=== PATIENT | female | born 1990 | race American Indian/Alaskan Native ===

== ENCOUNTER 2019-04-05 03:26 | Emergency (ER) | payer OTHER ==
[2019-04-05 03:33] VITALS: BP 142/95
[2019-04-05] MEDS ORDERED: PERCOCET 5/325 ONE (04:06)
[2019-04-05] MEDS ORDERED: PERCOCET 5/325 PO ONE (04:06)
[2019-04-05] MEDS ORDERED: ZOFRAN ODT PO ONE (04:06)
[2019-04-05] MEDS ORDERED: ZOFRAN ODT ONE (04:06)
--- NOTE | 2019-04-05 04:14 | Emergency Department Report ---
ED General Adult HPI - General Chief complaint: Dental/Oral Stated complaint: TOOTH ACHE Time Seen by Provider: 04/05/19 04:00 Source: patient Mode of arrival: Ambulatory Limitations: No Limitations - History of Present Illness Initial comments: Patient is a 29-year-old Morbidly Obese -[place] female with no past medical history who presents with a 82 with complaint of acute onset persistent severe right maxillary gums and swelling and pain while on monitor with aches for the last 2 days. Patient states that she has not been eating any food causes severe pain. Patient admits to taking on amoxicillin that were previously prescribed for upper respiratory infection that she did not complete. Patient states that she has been taking ibuprofen with no relief. Patient denies dizziness, fever, chills, nausea, vomiting, abdominal pain, sore throat, change in vision, neck pain or back pain. MD Complaint: swollen gums; toothache -: Sudden, days(s) (2) Location: mouth Radiation: non-radiation Severity scale (0 -10): 5 Quality: aching, sharp, constant Consistency: constant Improves with: none Worsens with: none Associated Symptoms: denies other symptoms. denies: confusion, chest pain, cough, diaphoresis, fever/chills, headaches, loss of appetite, malaise, nausea/vomiting, seizure, shortness of breath, syncope, weakness Treatments Prior to Arrival: NSAID - Related Data Previous Rx's Medication Instructions Recorded Last Taken Type Acetaminophen/Codeine [Tylenol 1 tab PO Q6H PRN #15 tab 04/05/19 Unknown Rx /Codeine # 3 tab] Clindamycin [Clindamycin CAP] 300 mg PO Q6HR #80 capsule 04/05/19 Unknown Rx Ketorolac [Toradol] 10 mg PO Q8H PRN #20 tablet 04/05/19 Unknown Rx Allergies Allergy/AdvReac Type Severity Reaction Status Date / Time No Known Allergies Allergy Unverified 04/05/19 03:31 ED Review of Systems ROS: Stated complaint: TOOTH ACHE Other details as noted in HPI Constitutional: denies: chills, fever Eyes: denies: eye pain, eye discharge, vision change ENT: dental pain (painful swollen gums and severely tender right maxillary pr emolar toothache), other (diffuse dental caries and cavities). denies: ear pain, throat pain Respiratory: no symptoms reported. denies: cough, shortness of breath, wheezing Cardiovascular: denies: chest pain, palpitations Endocrine: no symptoms reported Gastrointestinal: denies: abdominal pain, nausea, diarrhea Genitourinary: denies: urgency, dysuria, discharge Musculoskeletal: denies: back pain, joint swelling, arthralgia Skin: denies: rash, lesions Neurological: denies: headache, weakness, paresthesias Psychiatric: denies: anxiety, depression Hematological/Lymphatic: denies: easy bleeding, easy bruising ED Past Medical Hx - Past Medical History Previous Medical History?: Yes Hx Asthma: Yes - Surgical History Additional Surgical History: C/SX3 - Social History Smoking Status: Never Smoker Substance Use Type: None - Medications Home Medications: Home Medications Medication Instructions Recorded Confirmed Last Taken Type Acetaminophen/Codeine [Tylenol 1 tab PO Q6H PRN #15 tab 04/05/19 Unknown Rx /Codeine # 3 tab] Clindamycin [Clindamycin CAP] 300 mg PO Q6HR #80 capsule 04/05/19 Unknown Rx Ketorolac [Toradol] 10 mg PO Q8H PRN #20 tablet 04/05/19 Unknown Rx ED Physical Exam - General Limitations: No Limitations General appearance: alert, in no apparent distress - Head Head exam: Present: atraumatic, normocephalic, normal inspection - Eye Eye exam: Present: normal appearance, PERRL, EOMI. Absent: periorbital swelling, periorbital tenderness - ENT ENT exam: Present: normal exam, mucous membranes moist, TM's normal bilaterally, normal external ear exam, other (Swollen right maxillary gums with tenderness; diffuse caries and cavities; tender maxillary premolar teeth) - Neck Neck exam: Present: normal inspection, full ROM - Respiratory Respiratory exam: Present: normal lung sounds bilaterally. Absent: respiratory distress, wheezes, rhonchi, chest wall tenderness, accessory muscle use, decreased breath sounds, prolonged expiratory - Cardiovascular Cardiovascular Exam: Present: regular rate, normal rhythm, normal heart sounds. Absent: systolic murmur, diastolic murmur, rubs, gallop - GI/Abdominal GI/Abdominal exam: Present: soft, normal bowel sounds. Absent: tenderness, guarding, hyperactive bowel sounds, hypoactive bowel sounds, organomegaly - Rectal Rectal exam: Present: deferred - Extremities Exam Extremities exam: Present: normal inspection, full ROM, normal capillary refill. Absent: pedal edema - Back Exam Back exam: Present: normal inspection, full ROM. Absent: tenderness, muscle spasm, vertebral tenderness - Neurological Exam Neurological exam: Present: alert, oriented X3, CN II-XII intact, normal gait, reflexes normal - Psychiatric Psychiatric exam: Present: normal affect, normal mood - Skin Skin exam: Present: warm, dry, intact, normal color. Absent: rash ED Course Vital Signs 04/05/19 03:32 Temperature 98.6 F Pulse Rate 83 Respiratory 20 Rate Blood Pressure 142/95 O2 Sat by Pulse 100 Oximetry - Reevaluation(s) Reevaluation #1: 04/05/19 04:15 Patient is alert and oriented 3 and is not in any distress with normal vital signs. Patient was treated for pain in the ED and discharged home on antibiotics and pain medications, advised follow-up with the dentist in 5-7 days for reevaluation or return to the ED immediately if symptoms get worse. ED Medical Decision Making - Medical Decision Making Patient is alert and oriented 3 and is not in any distress with normal vital signs. Patient was treated for pain in the ED and discharged home on antibioti cs and pain medications, advised follow-up with the dentist in 5-7 days for reevaluation or return to the ED immediately if symptoms get worse. - Differential Diagnosis dental abscess; dental caries, acute gingivitis Critical care attestation.: If time is entered above; I have spent that time in minutes in the direct care of this critically ill patient, excluding procedure time. ED Disposition Clinical Impression: Acute gingivitis, Dental caries, Dental abscess Disposition: TO HOME OR SELFCARE Is pt being admited?: No Does the pt Need Aspirin: No Condition: Stable Instructions: Dental Abscess (ED), Gingivitis (ED), Dental Caries (ED) Additional Instructions: Take medications with food, drink plenty of fluids and follow-up with the denti st in 5-7 days or follow up with your primary care physician in 5-7 days for reevaluation. Return to the ED immediately if symptoms get worse. Prescriptions: Clindamycin [Clindamycin CAP] 300 mg PO Q6HR #80 capsule Ketorolac [Toradol] 10 mg PO Q8H PRN #20 tablet PRN Reason: Pain Acetaminophen/Codeine [Tylenol /Codeine # 3 tab] 1 tab PO Q6H PRN #15 tab PRN Reason: Pain , Severe (7-10) Referrals: KELY FOSS MD [Primary Care Provider] - 3-5 Days Time of Disposition: 04:45 Print Language: YI
== END 2019-04-05 04:54 | disposition home or self-care (01) ==
LOC: ED 03:26
DX: K05.00 Acute gingivitis, plaque induced (principal); K02.9 Dental caries, unspecified; K04.7 Periapical abscess without sinus; J45.909 Unspecified asthma, uncomplicated
CPT/HCPCS: Q0162

== ENCOUNTER 2019-04-05 21:09 | Emergency (ER) | payer OTHER ==
[2019-04-05] MEDS ORDERED: NORCO 5/325 PO ONE (21:12)
[2019-04-05] MEDS ORDERED: TORADOL IM ONE (21:12)
[2019-04-05] MEDS ORDERED: BICILLIN L-A IM ONE (21:12)
--- NOTE | 2019-04-05 21:14 | Emergency Department Report ---
ED Recheck HPI - General Stated Complaint: TOOTHACHE Time Seen by Provider: 04/05/19 21:12 Source: patient - History of Present Illness Initial Comments: HERE FOR DENTAL PAIN. HERE LAST PM AND COULD NOT GET MEDS DUE TO COST. - Related Data Previous Rx's Medication Instructions Recorded Last Taken Type Acetaminophen/Codeine [Tylenol 1 tab PO Q6H PRN #15 tab 04/05/19 Unknown Rx /Codeine # 3 tab] Clindamycin [Clindamycin CAP] 300 mg PO Q8H #30 cap 04/05/19 Unknown Rx Ketorolac [Toradol] 10 mg PO Q8H PRN #20 tablet 04/05/19 Unknown Rx Allergies Allergy/AdvReac Type Severity Reaction Status Date / Time No Known Allergies Allergy Unverified 04/05/19 03:31 ED Review of Systems ROS: Stated complaint: TOOTHACHE Other details as noted in HPI Comment: All other systems reviewed and negative ED Past Medical Hx - Past Medical History Hx Asthma: Yes - Surgical History Additional Surgical History: C/SX3 - Family History Family history: no significant - Social History Smoking Status: Never Smoker Substance Use Type: None - Medications Home Medications: Home Medications Medication Instructions Recorded Confirmed Last Taken Type Acetaminophen/Codeine [Tylenol 1 tab PO Q6H PRN #15 tab 04/05/19 Unknown Rx /Codeine # 3 tab] Clindamycin [Clindamycin CAP] 300 mg PO Q8H #30 cap 04/05/19 Unknown Rx Ketorolac [Toradol] 10 mg PO Q8H PRN #20 tablet 04/05/19 Unknown Rx ED Physical Exam - General General appearance: alert, in no apparent distress - Head Head exam: Present: normocephalic - Eye Eye exam: Present: normal appearance - ENT ENT exam: Present: mucous membranes moist - Neck Neck exam: Present: normal inspection - Respiratory Respiratory exam: Present: normal lung sounds bilaterally - Cardiovascular Cardiovascular Exam: Present: regular rate - GI/Abdominal GI/Abdominal exam: Present: soft - Rectal Rectal exam: Present: deferred - Extremities Exam Extremities exam: Present: normal inspection - Back Exam Back exam: Present: normal inspection, full ROM - Neurological Exam Neurological exam: Present: alert, oriented X3 - Psychiatric Psychiatric exam: Present: normal affect, normal mood - Skin Skin exam: Present: warm, dry, intact ED Course Vital Signs 04/05/19 21:13 Temperature 98.9 F Pulse Rate 70 Respiratory 16 Rate Blood Pressure 165/102 O2 Sat by Pulse 100 Oximetry ED Recheck MDM - Core Measures Measure Exclusions: not indicated - Differential Diagnosis Wound Recheck - Medical Decision Making MEDICATED WITH BICILLIN, TORADOL AND NORCO DC HOME WITH DC PLAN OF CARE Critical care attestation.: If time is entered above; I have spent that time in minutes in the direct care of this critically ill patient, excluding procedure time. ED Disposition Clinical Impression: Dental caries, Dental abscess, Acute gingivitis Disposition: DC-01 TO HOME OR SELFCARE Is pt being admited?: No Does the pt Need Aspirin: No Condition: Stable Instructions: Toothache (ED) Additional Instructions: see dmd judith over the counter motrin or tylenol will help with pain TELL DENTIST YOU GOT BICILLIN LA 1.2MU IM TODAY Prescriptions: Clindamycin [Clindamycin CAP] 300 mg PO Q8H #30 cap Referrals: [facility] [Outside] - 3-[address] [facility] [Outside] - 3-5 Days Time of Disposition: 21:15
[2019-04-05 21:16] VITALS: BP 165/102
== END 2019-04-05 21:41 | disposition home or self-care (01) ==
LOC: ED 21:09
DX: K05.00 Acute gingivitis, plaque induced (principal); K02.9 Dental caries, unspecified; K04.7 Periapical abscess without sinus; J45.909 Unspecified asthma, uncomplicated
CPT/HCPCS: J0561; J1885; 96372